=== PATIENT | male | born 1990 | race American Indian/Alaskan Native ===

== ENCOUNTER 2020-06-15 16:24 | Emergency (ER) | payer SELFPAY ==
[2020-06-15] MEDS ORDERED: KETOROLAC 30 MG/1 ML INJ IM ONE (19:13)
--- NOTE | 2020-06-15 19:23 | Emergency Department Report ---
ED Back Pain/Injury HPI - General Chief Complaint: Back Pain/Injury Stated Complaint: LOWER BACK PAINS Time Seen by Provider: 06/15/20 19:09 Source: patient Limitations: No Limitations - History of Present Illness Initial Comments: The patient was evaluated in the emergency department for symptoms described in the history of present illness. He/she was evaluated in the context of the global COVID-19 pandemic, which necessitated consideration that the patient might be at risk for infection with the virus that causes COVID-19. Institutional protocols and algorithms that pertain to the evaluation of patients at risk for COVID-19 are in a state of rapid change based on information released by regulatory bodies including the CDC and federal and state organizations. These policies and algorithms were followed during the patient's care in the emergency department. Please note that these policies, procedures and recommendations changed on a rapid basis. 30-year-old -[place] male presents to the emergency room stating that he hurt his back at work 3 to 4 days ago. Patient states that he was picking up a truck tire the wrong way and he pulled his back. Patient states he has been taking ibuprofen last dose was this morning of 400 mg. Patient states is been taken ibuprofen 400 mg yesterday only once a day. Patient also reports has been using BenGay. Patient denies any past medical history currently takes no medications and has no known drug allergies. Patient denies any urinary incontinence. It was noted that patient had elevated blood pressure of 185/105. MD Complaint: back pain Onset/Timin -: days(s) Similar Symptoms Previously: No Place: work Radiation: none Severity: moderate Quality: sharp Consistency: intermittent Improves With: immobilization Worsens With: movement Context: while lifting Associated Symptoms: denies other symptoms - Related Data Previous Rx's Medication Instructions Recorded Last Taken Type Ibuprofen [Motrin 600 MG tab] 600 mg PO Q8H PRN #21 tablet 06/15/20 Unknown Rx methOCARBAMOL [Robaxin TAB] 500 mg PO Q6H PRN #20 tablet 06/15/20 Unknown Rx Allergies Allergy/AdvReac Type Severity Reaction Status Date / Time No Known Allergies Allergy Unverified 06/15/20 16:45 ED Review of Systems ROS: Stated complaint: LOWER BACK PAINS Other details as noted in HPI Comment: All other systems reviewed and negative ED Past Medical Hx - Past Medical History Previous Medical History?: No - Surgical History Past Surgical History?: No - Social History Smoking Status: Current Every Day Smoker - Medications Home Medications: Home Medications Medication Instructions Recorded Confirmed Last Taken Type Ibuprofen [Motrin 600 MG tab] 600 mg PO Q8H PRN #21 tablet 06/15/20 Unknown Rx methOCARBAMOL [Robaxin TAB] 500 mg PO Q6H PRN #20 tablet 06/15/20 Unknown Rx ED Physical Exam - General Limitations: No Limitations General appearance: alert, in no apparent distress - Head Head exam: Present: atraumatic, normocephalic - Eye Eye exam: Present: normal appearance - ENT ENT exam: Present: mucous membranes moist - Respiratory Respiratory exam: Absent: accessory muscle use - Back Exam Back exam: Present: full ROM, tenderness, muscle spasm. Absent: vertebral tenderness - Neurological Exam Neurological exam: Present: alert, oriented X3, normal gait - Psychiatric Psychiatric exam: Present: normal affect, normal mood - Skin Skin exam: Present: warm, dry, intact, normal color. Absent: rash ED Course Vital Signs 06/15/20 16:45 Temperature 98.2 F Pulse Rate 95 H Respiratory 14 Rate Blood Pressure 185/105 O2 Sat by Pulse 96 Oximetry ED Medical Decision Making - Medical Decision Making 30-year-old -[place]anish male presents to the emergency room stating that he hurt his back at work 3 to 4 days ago. Patient states that he was picking up a truck tire the wrong way and he pulled his back. Patient states he has been taking ibuprofen last dose was this morning of 400 mg. Patient states is been taken ibuprofen 400 mg yesterday only once a day. Patient also reports has been using BenGay. Patient denies any past medical history currently takes no medications and has no known drug allergies. Patient denies any urinary incontinence. It was noted that patient had elevated blood pressure of 185/105. Patient is offered a Toradol injection. We will discharge patient on ibuprofen and Robaxin. Patient to follow-up with a back specialist if continue pain. Critical care attestation.: If time is entered above; I have spent that time in minutes in the direct care of this critically ill patient, excluding procedure time. ED Disposition Clinical Impression: Acute back pain Disposition: - TO HOME OR SELFCARE Is pt being admited?: No Does the pt Need Aspirin: No Condition: Stable Instructions: Acute Back Pain, Adult Additional Instructions: Please take medications only as needed. Do not operate heavy machinery while taking Robaxin. Be sure to increase your fluid intake. Follow-up with the back specialist if symptoms persist. Prescriptions: Ibuprofen [Motrin 600 MG tab] 600 mg PO Q8H PRN #21 tablet PRN Reason: Pain methOCARBAMOL [Robaxin TAB] 500 mg PO Q6H PRN #20 tablet PRN Reason: Muscle Spasm Referrals: [facility] [Provider Group] - 3-5 Days Forms: Work/School Release Form(ED)
[2020-06-15 19:33] VITALS: BP 159/80
== END 2020-06-15 20:09 | disposition home or self-care (01) ==
LOC: ED 16:24
DX: M54.89 Other dorsalgia (principal); F17.200 Nicotine dependence, unspecified, uncomplicated
CPT/HCPCS: 96372; 99282; J1885

== ENCOUNTER 2020-06-19 22:30 | Emergency (ER) | payer OTHER ==
[2020-06-19 22:56] VITALS: BP 108/66
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
[2020-06-19] MEDS ORDERED: LIDOCAINE (1%) 10 MG/1 ML VIAL 20 ML MDV INFILTRATI ONE (23:49)
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
--- NOTE | 2020-06-20 00:51 | XRay Report ---
Right wrist-3 views INDICATION: right wrist pain, trauma. COMPARISON: None. IMPRESSION: Mild generalized soft tissue swelling about the wrist with no acute fracture or malalign ment. No significant DJD. Signer Name: Giovany Liz MD Signed: 06/20/2020 12:47 AM Workstation Name: [id number]
[2020-06-20] MEDS ORDERED: IBUPROFEN 600 MG TAB PO ONE (00:52)
[2020-06-20] MEDS ORDERED: SULFAMETHOXAZOLE/TRIMETHOPRIM 800/160MG DS TAB PO ONE (00:52)
== END 2020-06-20 01:30 | disposition home or self-care (01) ==
LOC: ED 22:30
DX: S01.81XA Laceration without foreign body of other part of head, initial encounter (principal); S01.01XA Laceration without foreign body of scalp, initial encounter; S09.90XA Unspecified injury of head, initial encounter; M25.531 Pain in right wrist; F17.200 Nicotine dependence, unspecified, uncomplicated; Z79.899 Other long term (current) drug therapy; W22.8XXA Striking against or struck by other objects, initial encounter; Y93.89 Activity, other specified; Y92.89 Other specified places as the place of occurrence of the external cause; Y99.8 Other external cause status
CPT/HCPCS: 70450; 72125